=== PATIENT | male | born 1980 | race Two or more races ===

== ENCOUNTER 2017-07-29 13:10 | Emergency (ER) | payer OTHER ==
[2017-07-29 13:34] VITALS: BP 128/85; PULSE 81; TEMP 98.2; BMI 35.6
--- NOTE | 2017-07-29 15:27 | PDOC ---
History of Present Illness - General Chief Complaint: Respiratory Stated Complaint: BLURRY VISION, COUGH Time Seen by Provider: 07/29/17 14:56 Past History - Past Medical History Allergies/Adverse Reactions: Allergies Allergy/AdvReac Type Severity Reaction Status Date / Time No Known Allergies Allergy Verified 07/29/17 13:29 Home Medications: Ambulatory Orders Ofloxacin 0.3% Ophth Soln [Ocuflox -] 1 drop OP Q2H #60 drops 07/29/17 COPD: No Other medical history: DENIES. - Suicide/Smoking/Psychosocial Hx Smoking History: Current some day smoker Have you smoked in the past 12 months: Yes Information on smoking cessation initiated: No *Physical Exam - Vital Signs Last Vital Signs Temp Pulse Resp BP Pulse Ox 98.2 F 81 19 128/85 97 07/29/17 13:29 07/29/17 13:29 07/29/17 13:29 07/29/17 13:29 07/29/17 13:29 *DC/Admit/Observation/Transfer Diagnosis at time of Disposition: Cold sore Conjunctivitis Qualifiers: Conjunctivitis type: acute Acute conjunctivitis type: unspecified Laterality: right Qualified Code(s): H10.31 - Unspecified acute conjunctivitis, right eye - Discharge Dispostion Disposition: HOME Condition at time of disposition: Stable Admit: No - Referrals Referrals: Emily Issa MD [Primary Care Provider] - - Patient Instructions Printed Discharge Instructions: DI for Conjunctivitis Additional Instructions: You have conjunctivitis. This eye infection. Your prescribed eyedrops. Please follow the dosing instructions on the packaging. You may also use warm compresses to the eye to help with pain. You may also use Abreva for the cold sores. This is [id number]. Follow-up with her primary care doctor this week. Return to the emergency department if you have worsening pain, changes in your vision, or any changes in your symptoms. - Post Discharge Activity
== END 2017-07-29 15:32 | disposition home or self-care (01) ==
LOC: JERFT 13:10
DX: H10.31 Unspecified acute conjunctivitis, right eye (principal); B00.1 Herpesviral vesicular dermatitis
CPT/HCPCS: 99281-25